=== PATIENT | female | born 1970 | race Caucasian/White ===

== ENCOUNTER 2017-07-30 00:56 | Inpatient (IN) | payer MEDICAID ==
[~2017-07-30] VITALS: Ht 165.1 cm; Wt 80.7 kg
[2017-07-30 01:45] LABS: microscopic required? YES; urine erythrocyte 2+ (NEGATIVE)
[2017-07-30 02:27] LABS: CALCIUM 8.3 mg/dL (8.5-10.1); CARBON DIOXIDE 24.9 mmol/L (21-32); CHLORIDE SERUM 106 mmol/L (98-107); CREATININE SERUM 0.6 mg/dL (0.6-1.0); GFR1 > 60 mL/min; GLUCOSE SERUM 109 mg/dL (74-106); POTASSIUM SERUM 3.8 mmol/L (3.5-5.1); SODIUM SERUM 138 mmol/L (136-145)
[2017-07-30 02:34] LABS: BASOPHIL % 0.2 % (0-2); PLATELET COUNT 265 x10^3mcL (130-400)
[2017-07-30 02:36] LABS: ALBUMIN 3.7 g/dL (3.4-5.0); ALKALINE PHOSPHATASE 75 U/L (46-116); ALT/SGPT 20 U/L (14-59); AST/SGOT 20 U/L (15-37); BILIRUBIN TOTAL 0.33 mg/dL (0.20-1.00); TOTAL PROTEIN, SERUM 7.8 g/dL (6.4-8.2)
[2017-07-30 05:35] VITALS: BP 123/61
[2017-07-30 07:50] LABS: CHOLESTEROL/HDL RATIO 6.4
[2017-07-30 08:03] LABS: AMPHETAMINE QUAL UR NONE DETECTED (NEG <=1000)
[2017-07-30 08:04] LABS: MAGNESIUM 2.2 mg/dL (1.8-2.4); PHOSPHOROUS 3.2 mg/dL (2.5-4.9)
[2017-07-30 08:34] LABS: FREE THYROXINE INDEX 3.8 ug/dL (1.4-4.5); T4(THYROXINE) 12.6 ug/dL (4.7-13.3)
[2017-07-30 09:20] VITALS: BP 100/56
[2017-07-30 14:39] VITALS: BP 113/62
[2017-07-30 16:00] LABS: T3 TOTAL 1.6 ng/mL
[2017-07-30 16:39] VITALS: BP 107/56
[2017-07-30 17:43] VITALS: Ht 165.1 cm; Wt 80.7 kg
[2017-07-30 19:50] VITALS: BP 150/79
[2017-07-30 21:50] VITALS: BP 150/79
[2017-07-31 05:26] VITALS: BP 127/79
[2017-07-31 07:20] LABS: BASOPHIL % 0.1 % (0-2); PLATELET COUNT 284 x10^3mcL (130-400)
[2017-07-31 07:21] LABS: RED CELL DISTRIBUTION WIDTH 18.5 % (11.5-14.5)
[2017-07-31 07:22] LABS: rbc morphology (normal/abnorm) ABNORMAL (NORMAL)
[2017-07-31 07:28] LABS: CALCIUM 8.7 mg/dL (8.5-10.1); CARBON DIOXIDE 23.6 mmol/L (21-32); CHLORIDE SERUM 104 mmol/L (98-107); CREATININE SERUM 0.5 mg/dL (0.6-1.0); GFR1 > 60 mL/min; GLUCOSE SERUM 120 mg/dL (74-106); POTASSIUM SERUM 3.9 mmol/L (3.5-5.1); SODIUM SERUM 138 mmol/L (136-145)
[2017-07-31 08:38] LABS: ovalocyte/elliptocyte 1+; tear drop cell (dacryocyte) 1+
[2017-07-31 09:39] LABS: RED BLOOD CELLS 3.95 M/mm3 (4.10-5.10)
[2017-07-31 09:53] VITALS: BP 120/58
[2017-07-31] MEDS ORDERED: VITC PO (10:17)
[2017-07-31] MEDS ORDERED: NATURAL IRON65 MG PO (10:17)
[2017-07-31 10:26] LABS: IRON 18 ug/dL (50-170); TOTAL IRON BINDING CAPACITY 550 ug/dL (250-450)
[2017-07-31 13:00] VITALS: BP 122/61
[2017-07-31 13:36] VITALS: BP 122/61
== END 2017-07-31 14:34 | disposition home or self-care (01) | DRG 517 ==
LOC: ED 00:56 → DU 04:43
PROVIDERS: Emergency Medicine; Family Medicine Sports Medicine; Obstetrics & Gynecology; ADMIT Student in an Organized Health Care Education/Training Program
PROC: 0UDB7ZZ Extraction of Endometrium, Via Natural or Artificial Opening (ICD-10-PCS; principal; 2017-07-30 17:45)
DX: D25.9 Leiomyoma of uterus, unspecified (principal); E83.51 Hypocalcemia; D50.0 Iron deficiency anemia secondary to blood loss (chronic); N93.8 Other specified abnormal uterine and vaginal bleeding; E78.5 Hyperlipidemia, unspecified; R73.03 Prediabetes; Z68.29 Body mass index [BMI] 29.0-29.9, adult
CPT/HCPCS: 83880; 84439; 94150; J2405; J2704; J3010; J7030; J7120; Q0092

== ENCOUNTER 2019-10-27 16:59 | Emergency (ER) | payer MEDICAID ==
[~2019-10-27] VITALS: Ht 162.6 cm; Wt 105.2 kg
[~2019-10-27 16:59] MED LIST: NATURAL IRON65 MG PO; VITC PO
[2019-10-27 17:18] VITALS: Ht 162.6 cm; Wt 105.2 kg
[2019-10-27 19:05] LABS: BASOPHIL % 0.3 % (0-2); PLATELET COUNT 270 x10^3mcL (130-400); RED CELL DISTRIBUTION WIDTH 13.4 % (11.5-14.5)
[2019-10-27 19:21] LABS: CHLORIDE SERUM 101 mmol/L (98-107); CREATININE SERUM 0.5 mg/dL (0.6-1.0); GFR1 > 60 mL/min; GLUCOSE SERUM 125 mg/dL (74-106); POTASSIUM SERUM 3.9 mmol/L (3.5-5.1); SODIUM SERUM 135 mmol/L (136-145)
[2019-10-27 19:27] LABS: ALKALINE PHOSPHATASE 88 U/L (46-116); ALT/SGPT 151 U/L (14-59); AST/SGOT 98 U/L (15-37); BILIRUBIN TOTAL 0.64 mg/dL (0.20-1.00); LIPASE 244 IU/L (73-393); TOTAL PROTEIN, SERUM 7.9 g/dL (6.4-8.2)
[2019-10-27 20:09] LABS: UA SPECIFIC GRAVITY <=1.005 (1.005-1.035); microscopic required? YES; urine erythrocyte 2+ (NEGATIVE)
[2019-10-27 23:19] VITALS: BP 137/67
== END 2019-10-27 23:19 | disposition home or self-care (01) ==
LOC: ED 16:59
PROVIDERS: Student in an Organized Health Care Education/Training Program
DX: N39.0 Urinary tract infection, site not specified (principal); B34.9 Viral infection, unspecified; R05 Cough; R10.30 Lower abdominal pain, unspecified
CPT/HCPCS: 36415; 87804; J0696; J7030; Q0092